=== PATIENT | female | born 1950 | race Caucasian/White ===

== ENCOUNTER 2020-05-12 14:00 | Inpatient (IN) | payer MEDICARE, BC ==
[2020-05-15 08:55] VITALS: BMI 35.4
[2020-05-16] MEDS ORDERED: Vancomycin 1.5 GRAM/300 ML BAG ONE (05:59)
[2020-05-16] MEDS ORDERED: Sodium Chloride 0.9% 100 ML ONE (05:59)
[2020-05-16] MEDS ORDERED: Tranexamic Acid 1,000 MG/10 ML VIAL ONE (05:59)
[2020-05-16] MEDS ORDERED: Midazolam HCl 2 mg/2 ml Vial ONE ×2 (06:21→06:28)
[2020-05-16] MEDS ORDERED: Fentanyl 100 MCG/2 ML VIAL ONE ×3 (06:28→10:28)
[2020-05-16] MEDS ORDERED: Scopolamine 1.5 mg/72 hour Patch ONE (06:35)
[2020-05-16] MEDS ORDERED: Promethazine HCl 25 MG/ML VIAL ONE (06:55)
[2020-05-16] MEDS ORDERED: Bupivacaine/Epinephrine 0.25% 30 ML VIAL ONE (07:00)
[2020-05-16] MEDS ORDERED: Acetaminophen 325 MG TAB PO PRN ×2 (07:09→10:00)
[2020-05-16] MEDS ORDERED: Naloxone HCl 0.4 mg/ml Vial IV PRN (07:15)
[2020-05-16] MEDS ORDERED: diphenhydrAMINE 50 MG/ML VIAL IVP PRN (07:15)
[2020-05-16] MEDS ORDERED: HYDROcodone/Acetaminophen 5/325 mg Tablet PO PRN ×2 (07:15)
[2020-05-16] MEDS ORDERED: Hydrocerin (Eucerin) Cream 120 gm Jar TOP PRN (07:15)
[2020-05-16] MEDS ORDERED: diphenhydrAMINE 50 MG/ML VIAL IM PRN (07:15)
[2020-05-16] MEDS ORDERED: Ondansetron PF 4 MG/2 ML Vial IVP PRN ×2 (07:15→10:00)
[2020-05-16] MEDS ORDERED: Bupivacaine 0.25% 10 ML VIAL EPIDURAL PRN (07:15)
[2020-05-16] MEDS ORDERED: Promethazine HCl 25 MG/ML VIAL IM PRN ×2 (07:15→10:00)
[2020-05-16] MEDS ORDERED: diphenhydrAMINE 25 MG CAP PO PRN ×2 (07:15→10:00)
[2020-05-16] MEDS ORDERED: traMADol HCl 50 MG TAB PO PRN ×3 (07:15→10:00)
[2020-05-16] MEDS ORDERED: Naloxone HCl 0.4 mg/ml Vial IVP PRN (07:15)
[2020-05-16] MEDS ORDERED: Zolpidem Tartrate 5 MG TAB PO PRN ×2 (07:15→10:00)
[2020-05-16] MEDS ORDERED: Promethazine HCl 25 MG SUPP PR PRN (07:15)
[2020-05-16] MEDS ORDERED: Phenylephrine 10 MG/ML VIAL ONE ×2 (07:18→09:10)
[2020-05-16] MEDS ORDERED: Dexamethasone 20 MG/5 ML VIAL ONE (09:31)
[2020-05-16] MEDS ORDERED: Glycopyrrolate 0.2 MG/ML 5 ML SYRINGE ONE (09:31)
[2020-05-16] MEDS ORDERED: PROPOFOL 200 MG/20 ML VIAL ONE (09:31)
[2020-05-16] MEDS ORDERED: Lidocaine 1.5% w/Epi 1:200K 30 ML VIAL (Epid Use) ONE (09:31)
[2020-05-16] MEDS ORDERED: Ondansetron PF 4 MG/2 ML Vial ONE (09:31)
[2020-05-16] MEDS ORDERED: Rocuronium Bromide 10 MG/ML (10ML VIAL) ONE (09:31)
[2020-05-16] MEDS ORDERED: PHENYLEPHRINE-NS 100 MCG/ML 10 ML SYRINGE ONE (09:31)
[2020-05-16] MEDS ORDERED: Lidocaine 1% PF 5 ML VIAL ONE (09:31)
[2020-05-16] MEDS ORDERED: Ketorolac Tromethamine 30 MG/ML VIAL ONE (09:31)
[2020-05-16] MEDS ORDERED: HYDROcodone/Acetaminophen 10/325 mg Tablet PO PRN ×2 (10:00)
[2020-05-16] MEDS ORDERED: Fentanyl 100 MCG/2 ML VIAL SLOW IVP PRN ×2 (10:00)
[2020-05-16] MEDS ORDERED: Ketorolac Tromethamine 30 MG/ML VIAL IVP PRN (10:00)
[2020-05-16] MEDS ORDERED: Aspirin 81 mg Enteric Coated Tablet PO SCH (10:15)
--- NOTE | 2020-05-16 10:43 | RAD ---
XR Hip Rt 1 View HISTORY: Hip replacement surgery FINDINGS: There are recent postoperative changes of right-sided total hip arthroplasty in good positi on and alignment.
--- NOTE | 2020-05-16 10:44 | RAD ---
XR Pelvis AP STANDARD HISTORY: Right hip replacement surgery FINDINGS: There are recent postoperative changes of right-sided total hip arthroplasty in good posit ion and alignment.
--- NOTE | 2020-05-16 14:21 | OP ---
DATE OF PROCEDURE: 05/16/2020 PREOPERATIVE DIAGNOSIS: Right hip arthritis secondary to rheumatoid arthritis. POSTOPERATIVE DIAGNOSIS: Right hip arthritis secondary to rheumatoid arthritis. PROCEDURE PERFORMED: Right total hip arthroplasty. MAILER APPRENTICE: Leonardo Verdin PA-C ANESTHESIA: Johnny Ayala MD. Patient received a general with an epidural. ESTIMATED BLOOD LOSS: Less than 150 mL. TOURNIQUET TIME: None. ANTIBIOTICS: 2 g of Ancef, 1.5 g of vancomycin. The patient received 1 g of TXA. IMPLANTS: Trident #2 titanium shell size 52, Trident X3, 36 mm, 10-degree poly insert, Accolade-II 130 degree, size 2 stem, Dall-Miles cable and sleeve set and 36 +5 ceramic head. COMPLICATIONS: Calcar split. HISTORY OF PRESENT ILLNESS: Ms. Velasquez is a 69-year-old female who presents with right hip pain and ambulation, difficulty get around. The patient has previous history of pain from rheumatoid arthritis affecting her right hip. I discussed the risks and benefits of right total hip arthroplasty including pain, scar, bleeding, infection, damage to vital structures, decreased range of motion, fracture, need for further surgeries, damage to vital structures, loss of life or limb. The patient understood the risks and benefits of procedure and elected to proceed. DESCRIPTION OF PROCEDURE: Time-out was performed designating the patient's right lower extremity as the operative site based on site, consents, and marking. After time-out, the patient's right lower extremity was prepped and draped in a sterile fashion. Patient was placed in a lateral position with bony prominences well- padded. After time-out was performed, I made a lateral incision down through skin down to the IT band. We split the IT band, came down,took the gluteus medius. There was actually already a tear within the fatty infiltration of the gluteus medius, took the medius abductors down, exposed the capsule. We T'd the capsule holding it in place, dislocated the hip, cut the femoral head, removed the head, we overall pleased with our neck cut. We moved back to the acetabulum and placed retractors anterior and posterior to expose the acetabulum. Took the labrum, did labrectomy, sequentially reamed starting at 44 up to 52, placed 52 mm cup with posterior exposure and about 45-degree inclination. We impacted into place, placed the polyethylene liner posterior superior, impacted in place, washed, and moved to the femur. We started with our HubChilla cutter, broached up to a size 2 trial. The 2 +5, we were happy with this overall alignment and position. We removed the implant. We then started placing our final implant, washed. As we passed our final implant, a small crack appeared in the calcar, removed it and placed [employer]From[employer] cable around the trochanter right at the calcar, crimped and cut both ends. We placed our implant. There was no splitting, reduced the hip, washed, closed the capsule together, closed the gluteus minimus, gluteus medius, IT band with #2 followed by #2 Stratafix, 0 Stratafix, 2-0 Stratafix, and glue. My gallery assistant helped with opening of skin, retraction and exposure, and closure. The patient will be touchdown weightbearing because of the crack in the patient's calcar. She will be admitted for 48 hours. Job ID: [id number] [facility]
[2020-05-16] MEDS: Ketorolac Tromethamine 30 MG/ML VIAL IVP SCH ×3 (15:35→23:44)
[2020-05-16] MEDS: CEFAZOLIN 2 GM in Premix Bag 1 BAG IVPB SCH ×2 (15:37→21:01)
[2020-05-16] MEDS: Sodium Chloride 0.9% 1,000 ML IV SCH ×2 (15:44→20:22)
[2020-05-16] MEDS ORDERED: Vancomycin 1.5 GRAM/300 ML BAG 1.5 GM in Premix Bag 1 BAG IVPB SCH (18:00)
--- NOTE | 2020-05-16 19:02 | CON ---
DATE OF CONSULTATION: 05/16/2020 REASON FOR CONSULTATION: Medical management. BRIEF HISTORY OF PRESENT ILLNESS: This is a 69-year-old female with history of rheumatoid arthritis, who was admitted for elective right hip surgery. The patient states that she was diagnosed with rheumatoid arthritis approximately 6 months ago when she had severe bilateral shoulder swelling. The patient states that her lab work was positive for rheumatoid arthritis. She previously she had been on methotrexate, leflunomide, and sulfasalazine, however, was switched to Plaquenil due to not being able to tolerate the other medicines due to side effects. Over the past 6 months, her right hip became progressively worse and she was told that she had bone on bone on that side. She decided to have hip surgery for this reason. The patient currently states that she is in no pain in her right hip. She denies any tingling, numbness, or significant swelling on that side. She has worked with physical therapy this afternoon. She denies any fevers, chills, cough, shortness of breath, abdominal pain, nausea, or vomiting. The patient is requesting that she take her Plaquenil and her thyroid medicine tonight because she already missed her morning dose and states that she can feel her shoulder is flaring up. PAST MEDICAL HISTORY: 1. Rheumatoid arthritis. 2. Hypothyroidism. PAST SURGICAL HISTORY: None. FAMILY HISTORY: Mother had fibromyalgia. SOCIAL HISTORY: The patient denies smoking, illegal drug use. She denies any alcohol use. 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 She lives alone. ALLERGIES: CODEINE. PHYSICAL EXAMINATION: VITAL SIGNS: Pending, but appears stable. GENERAL: The patient is obese. She is alert, awake, and oriented x3. CVS: Regular rate and rhythm with no murmurs, rubs, or gallops. LUNGS: Clear to auscultation bilaterally. ABDOMEN: Positive bowel sounds. Soft, nontender, and nondistended. EXTREMITIES: She has full range of motion of bilateral upper arms. She has diminished range of motion in the right lower leg secondary to pain. She has full range of motion of her left leg. There is no significant tenderness on the right hip or on the left leg. She has 2+ DP pulses. She has intact sensation in both legs. There is no swelling of her PIP or DIP joints in her hands and there is no shoulder tenderness. PERTINENT LABORATORY DATA: CBC on 05/12: White count 11.2, hemoglobin 13.7, hematocrit 41.5, and platelet count 282. BMP on 05/12: Normal. COVID PCR on 05/12: Negative. IMAGING: Hip x-ray on 05/16: Shows recent postop changes of right-sided total hip arthroplasty. Pelvis x-ray on 05/16: Recent postop changes of right-sided total hip arthroplasty in good position and alignment. ASSESSMENT: This is a 69-year-old female with history of rheumatoid arthritis and hypothyroidism, who was admitted for elective right hip surgery. Plan 1. Status post right total hip arthroplasty in the setting of rheumatoid arthritis:. - Continue pain management per Orthopedics. Physical therapy as tolerated. Continue empiric antibiotics with IV vancomycin and cefazolin. Follow up postoperative wound cultures if obtained. 2. Leukocytosis: White count is 11.2. This is likely postop related from surgery. If persists, we will consider further workup. 4. Rheumatoid arthritis: Continue Plaquenil 200 mg p.o. b.i.d. 5. Hypothyroidism: Continue levothyroxine. Thank you for this consultation: We will continue to follow. Job ID: [id number] [facility]
[2020-05-16] MEDS ORDERED: Levothyroxine Sodium 125 MCG TAB PO SCH (21:00)
[2020-05-16] MEDS ORDERED: Hydroxychloroquine Sulfate 200 MG TAB PO SCH (21:00)
[2020-05-16] MEDS: Aspirin 81 mg Enteric Coated Tablet PO SCH (21:01)
[2020-05-16] MEDS: Hydroxychloroquine Sulfate 200 MG TAB PO SCH (21:01)
[2020-05-16] MEDS: Levothyroxine Sodium 125 MCG TAB PO SCH (21:08)
[2020-05-17] MEDS: fentaNYL Citrate/PF 500 MCG, Bupivacaine 10 ML in Sodium Chloride 0.9% 80 ML EPIDURAL SCH ×2 (01:36→17:31)
[2020-05-17 07:27] LABS: Hemoglobin 10.7 g/dL (12.0-16.0); Mean Corpuscular HGB CONC 32.4 g/dL (32.0-36.0); Mean Corpuscular Hemoglobin 32.8 pg (27.0-31.0); Mean Platelet Volume 7.9 fL (7.4-10.4); Platelet Count 222 thou/uL (130-400); RBC Distribution Width 12.1 % (11.5-14.5); Red Blood Cell (RBC) Count 3.26 mill/uL (4.20-5.40); White Blood Cell (WBC) Count 13.7 thou/uL (4.8-10.8)
[2020-05-17] MEDS: Ferrous Gluconate 324 MG TAB PO SCH ×2 (08:00→17:27)
[2020-05-17] MEDS: Senokot S 8.6-50 MG TAB PO SCH ×2 (09:00→20:22)
[2020-05-17] MEDS: Hydroxychloroquine Sulfate 200 MG TAB PO SCH ×2 (09:00→20:23)
[2020-05-17] MEDS: Multivitamin W/ Minerals 1 TAB PO SCH (09:00)
[2020-05-17] MEDS: Aspirin 81 mg Enteric Coated Tablet PO SCH ×2 (09:00→20:22)
[2020-05-17] MEDS: Ketorolac Tromethamine 30 MG/ML VIAL IVP SCH ×3 (12:18→17:29)
[2020-05-17] MEDS ORDERED: Polyethylene Glycol 3350 17 GM Packet PO PRN (15:44)
--- NOTE | 2020-05-17 15:46 | PDOC.HOSPP ---
- Subjective Encounter Date: 05/17/20 Encounter Time: 12:00 Subjective: The patient says she is doing well. She is no pain . She is constipated and has not had the urge to have a bowel movement as of yet. She reports getting senna this am She wants to take a break from SCDS, is sitting in the chair . Advised to place them back on if she is not ambulating frequently - Objective Vital Signs & Weight: Vital Signs (12 hours) Temp Pulse Resp BP Pulse Ox 05/17/20 12:29 97.8 F 96 16 119/67 98 05/17/20 08:00 97 Weight Admit Weight 200 lb Weight 200 lb I&O: 05/16/20 05/17/20 05/18/20 06:59 06:59 06:59 Intake Total 1390 Output Total 1050 Balance 340 Result Diagrams: 05/17/20 04:25 Hospitalist ROS - Review of Systems Constitutional: denies: fever, chills - Medication Medications: Active Medications Generic Name Dose Route Start Last Admin Trade Name Mariya PRN Reason Stop Dose Admin Aspirin 81 mg 05/16/20 21:00 05/16/20 21:01 Ecotrin PO 81 mg BID TWILA Administration Hydroxychloroquine Sulfate 200 mg 05/16/20 21:00 05/16/20 21:01 Plaquenil PO 200 mg BID TWILA Administration Fentanyl Citrate 500 mcg/ 100 mls @ 6 mls/hr 05/16/20 07:15 05/17/20 01:36 Bupivacaine HCl 10 ml/ Sodium EPIDURAL 100 mls Chloride INF TWILA Administration Sodium Chloride 1,000 mls @ 100 mls/hr 05/16/20 10:00 05/16/20 20:22 Normal Saline 0.9% IV Not Given .Q10H TWILA Ketorolac Tromethamine 15 mg 05/16/20 12:00 05/17/20 12:25 Toradol IVP 05/18/20 06:01 Not Given Q6HR TWILA Levothyroxine Sodium 125 mcg 05/16/20 21:00 05/16/20 21:08 Synthroid PO Not Given HS TWILA - Exam General Appearance: NAD, awake alert Eye: PERRL, anicteric sclera ENT: normocephalic atraumatic, no oropharyngeal lesions Neck: no JVD Heart: RRR, no murmur, no gallops, no rubs Respiratory: CTAB, no wheezes, no rales, no ronchi, normal percussion Gastrointestinal: soft, non-tender, non-distended, normal bowel sounds, no palpable masses Extremities: no cyanosis, no clubbing, no edema Extremities - other findings: patient has mild warmth of right leg, slightly dec ROM right leg Skin: normal turgor, no lesions, no rashes Hosp A/P - Plan This is 69 year old female with rheumatoid arthritis, hypothyroidism who is s/p right hip surgery Right hip arthroplasty in setting of RA - pain is well controlled - physical therapy as tolerated - antibiotics discontinued per orthopedics Constipation - on senna/colace - added miralax Leukocytosis - WBC going up to 13, possibly reactive - check UA and chest X ray Hypothyroidism - continue levothyroxine
[2020-05-17] MEDS: Sodium Chloride 0.9% 1,000 ML IV SCH (17:26)
--- NOTE | 2020-05-17 17:31 | RAD ---
Portable frontal chest radiograph: 05/17/2020 COMPARISON: 05/12/2020 HISTORY: Leukocytosis FINDINGS: Lungs are clear. Heart and mediastinal contours appear within normal limits. IMPRESSION: No acute findings.
[2020-05-17] MEDS: Levothyroxine Sodium 125 MCG TAB PO SCH (20:22)
[2020-05-18] MEDS: Sodium Chloride 0.9% 1,000 ML IV SCH ×3 (00:11→23:44)
[2020-05-18] MEDS: Ketorolac Tromethamine 30 MG/ML VIAL IVP SCH ×2 (00:17→06:18)
[2020-05-18 00:56] LABS: Bacteria/HPF Rare-Few HPF (None Seen); Bilirubin Negative (Negative); Blood, Urine Trace (Negative); Clarity Clear (Clear); Glucose, Urine (Dipstick) Normal (Negative); Ketone, Urine Negative (Negative); Leukocyte Negative Leu/uL (Negative); Nitrite Negative (Negative); Protein, Urine (Dipstick) 10 mg/dL (Neg-Trace); Squamous Epithelial 0-3 HPF (0-3); Urobilinogen Normal mg/dL (Less than 2); WBC/HPF 0-3 HPF (0-3); pH, Urine 5.5 (5.0-9.0)
[2020-05-18 05:34] LABS: Hemoglobin 10.4 g/dL (12.0-16.0); Mean Corpuscular HGB CONC 32.8 g/dL (32.0-36.0); Mean Corpuscular Hemoglobin 32.8 pg (27.0-31.0); Mean Corpuscular Volume 99.8 fL (78.0-98.0); Mean Platelet Volume 7.8 fL (7.4-10.4); Platelet Count 210 thou/uL (130-400); Red Blood Cell (RBC) Count 3.17 mill/uL (4.20-5.40); White Blood Cell (WBC) Count 10.1 thou/uL (4.8-10.8)
[2020-05-18 06:27] LABS: Thyroid Stimulating Hormone 0.0187 uIU/mL (0.35-4.94)
[2020-05-18] MEDS: Senokot S 8.6-50 MG TAB PO SCH ×2 (07:50→20:54)
[2020-05-18] MEDS: Aspirin 81 mg Enteric Coated Tablet PO SCH ×2 (07:50→20:52)
[2020-05-18] MEDS: Hydroxychloroquine Sulfate 200 MG TAB PO SCH ×2 (07:51→20:53)
[2020-05-18] MEDS: Multivitamin W/ Minerals 1 TAB PO SCH (07:51)
[2020-05-18] MEDS: Ferrous Gluconate 324 MG TAB PO SCH ×2 (07:51→17:28)
--- NOTE | 2020-05-18 14:04 | PDOC.HOSPP ---
- Subjective Encounter Date: 05/18/20 Encounter Time: 11:00 Subjective: The patient states she is being discharged today. She reports still no urge to go to the bathroom. She states she did not receive her miralax yesterday She has no hip pain but still has anasthesia in place - Objective Vital Signs & Weight: Vital Signs (12 hours) Temp Pulse Resp BP Pulse Ox 05/18/20 12:07 99.6 F 98 16 115/73 95 05/18/20 08:08 98.4 F 92 16 107/66 93 L 05/18/20 08:00 93 L 05/18/20 03:37 98.4 F 95 17 130/77 96 Weight Admit Weight 200 lb Weight 200 lb I&O: 05/17/20 05/18/20 05/19/20 06:59 06:59 06:59 Intake Total 1390 Output Total 1050 2250 Balance 340 -2250 Result Diagrams: 05/18/20 05:08 Hospitalist ROS - Review of Systems Constitutional: denies: fever, chills - Medication Medications: Active Medications Generic Name Dose Route Start Last Admin Trade Name Freq PRN Reason Stop Dose Admin Aspirin 81 mg 05/16/20 21:00 05/18/20 07:50 Ecotrin PO 81 mg BID TWILA Administration Ferrous Gluconate 324 mg 05/17/20 08:00 05/18/20 07:51 Fergon PO 324 mg BID-WM TWILA Administration Hydroxychloroquine Sulfate 200 mg 05/16/20 21:00 05/18/20 07:51 Plaquenil PO 200 mg BID TWILA Administration Fentanyl Citrate 500 mcg/ 100 mls @ 6 mls/hr 05/16/20 07:15 05/17/20 17:31 Bupivacaine HCl 10 ml/ Sodium EPIDURAL 100 mls Chloride INF TWILA Administration Sodium Chloride 1,000 mls @ 100 mls/hr 05/16/20 10:00 05/18/20 00:11 Normal Saline 0.9% IV Not Given .Q10H TWILA Iron/Minerals/Multivitamins 1 tab 05/17/20 09:00 05/18/20 07:51 Theragran M PO 1 tab DAILY TWILA Administration Levothyroxine Sodium 125 mcg 05/16/20 21:00 05/17/20 20:22 Synthroid PO 125 mcg HS TWILA Administration Senna/Docusate Sodium 2 tab 05/17/20 09:00 05/18/20 07:50 Senokot S PO 2 tab BID TWILA Administration - Exam General Appearance: NAD, awake alert Eye: PERRL, anicteric sclera ENT: dry oral mucosa Neck: supple, symmetric, no JVD Heart: RRR, no murmur, no gallops, no rubs Respiratory: CTAB, no wheezes, no rales, no ronchi Gastrointestinal: soft, non-tender, non-distended, normal bowel sounds Extremities: no cyanosis, no clubbing, no edema Skin: normal turgor, no lesions, no rashes Neurological: cranial nerve grossly intact, normal sensation to touch, no focal deficits, no new deficit Musculoskeletal: normal tone, normal strength, no muscle wasting Musculoskeletal - other findings: patient is able to lift up right leg Psychiatric: normal affect, normal behavior, A&O x 3 Hosp A/P - Plan This is 69 year old female with rheumatoid arthritis, hypothyroidism who is s/p right hip surgery Right hip arthroplasty in setting of RA - pain is well controlled - physical therapy as tolerated - antibiotics discontinued per orthopedics - patient to be discharged today Constipation - on senna/colace - added miralax - will add suppository as well Leukocytosis - resolved - UA unremarkable, chest Xray normal Hypothyroidism - continue levothyroxine
[2020-05-18] MEDS: Bisacodyl 10 MG SUPP PR SCH ×2 (14:43→22:57)
[2020-05-18] MEDS: Levothyroxine Sodium 125 MCG TAB PO SCH (20:53)
[2020-05-19 05:39] LABS: Hemoglobin 10.3 g/dL (12.0-16.0); Mean Corpuscular HGB CONC 32.1 g/dL (32.0-36.0); Mean Corpuscular Hemoglobin 31.9 pg (27.0-31.0); Mean Corpuscular Volume 99.4 fL (78.0-98.0); Mean Platelet Volume 7.8 fL (7.4-10.4); Platelet Count 224 thou/uL (130-400); Red Blood Cell (RBC) Count 3.24 mill/uL (4.20-5.40); White Blood Cell (WBC) Count 10.1 thou/uL (4.8-10.8)
[2020-05-19] MEDS: Aspirin 81 mg Enteric Coated Tablet PO SCH (08:41)
[2020-05-19] MEDS: Senokot S 8.6-50 MG TAB PO SCH (08:41)
[2020-05-19] MEDS: Hydroxychloroquine Sulfate 200 MG TAB PO SCH (08:43)
[2020-05-19] MEDS: Ferrous Gluconate 324 MG TAB PO SCH (08:43)
[2020-05-19] MEDS: Multivitamin W/ Minerals 1 TAB PO SCH (08:43)
[2020-05-19] MEDS: Sodium Chloride 0.9% 1,000 ML IV SCH (08:46)
[2020-05-19] MEDS ORDERED: Polyethylene Glycol 3350 17 GM Packet PO SCH (09:00)
[2020-05-19 10:08] LABS: Free T4 (Free Thyroxine) 1.74 ng/dL (0.70-1.48); Thyroid Stimulating Hormone 0.0068 uIU/mL (0.35-4.94)
--- NOTE | 2020-05-19 12:05 | PDOC.EVN ---
Event Note - Event Note Event Note: Patient being discharged today. She complained of random twitchy movements in her arms and legs. BMP and Mg ordered. She has full ROM of her extremities. TSH low, patient states she does not want her thyroid medicine adjusted. She did miss two doses of levothyroxine but explained this would have made her TSH high, now low. Reverse T3 pending, this could be sick euthyroid. Advised to followup with PCP if thyroid medicine needs to be adjusted
[2020-05-19 12:11] LABS: Anion Gap 16 mmol/L (10-20); BUN (Urea Nitrogen) 10 mg/dL (9.8-20.1); Calc. Creatinine Clearance 100 mL/min (70-130); Calcium 8.6 mg/dL (7.8-10.44); Carbon Dioxide 22 mmol/L (23-31); Chloride 105 mmol/L (98-107); Estimated GFR-MDRD 75; Glucose 163 mg/dL (80-115); Potassium 3.7 mmol/L (3.5-5.1); Sodium 139 mmol/L (136-145)
[2020-05-19 12:47] VITALS: BP 138/73; TEMP 98.7
[2020-05-19] MEDS ORDERED: Levothyroxine Sodium 125 MCG TAB PO SCH (21:00)
[2020-05-19] MEDS ORDERED: Levothyroxine Sodium 100 MCG TAB PO SCH (21:00)
== END 2020-05-19 13:40 | DRG 470 ==
LOC: EDSTATUS 14:00 → SURG A 05-16 05:38 → SJJU 05-16 11:30
PROVIDERS: ADMIT Orthopaedic Surgery; ATTEND Orthopaedic Surgery
PROC: 0SR904Z Replacement of Right Hip Joint with Ceramic on Polyethylene Synthetic Substitute, Open Approach (ICD-10-PCS; principal; 2020-05-16)
DX: M16.11 Unilateral primary osteoarthritis, right hip (principal); E03.9 Hypothyroidism, unspecified; Z20.828 Contact with and (suspected) exposure to other viral communicable diseases; M06.851 Other specified rheumatoid arthritis, right hip; K59.00 Constipation, unspecified; D72.829 Elevated white blood cell count, unspecified; Z88.5 Allergy status to narcotic agent; Z79.890 Hormone replacement therapy; Z79.899 Other long term (current) drug therapy
CPT/HCPCS: 36415; 71045; 72170; 80048; 81001; 82607; 82746; 83036; 83735; 84439; 84443; 84481; 84482; 85027; J0690; J1100; J1885; J2001; J2250; J2370; J2405; J2550; J2704; J3010; J3370; J3490